=== PATIENT | female | born 1985 | race Caucasian/White ===

== ENCOUNTER 2018-12-23 12:03 | Outpatient (REF) | payer SELFPAY ==
[2018-12-23 22:23] LABS: Abs Immature Grans 0.01 k/cumm (0.0-0.09); Absolute Basophil Count 0.03 k/cumm (0.0-0.2); Absolute Eosinophil Count 0.11 k/cumm (0.0-0.7); Absolute Lymphocyte Count 1.81 k/cumm (1.2-3.4); Absolute Monocyte Count 0.32 k/cumm (0.11-0.7); Absolute Neutrophil Count 5.06 k/cumm (1.2-6.7); Basophils % 0.4; Eosinophils % 1.5; HCT 42.2 % (36.0-46.0); HGB 14.3 g/dL (12.0-15.5); Immature Grans % 0.1; Lymphocytes % 24.7; Mean Corp. HGB Concentration 33.9 g/dL (32.0-36.0); Mean Corpuscular Hemoglobin 31.9 pg (27.0-33.0); Mean Corpuscular Volume 94.2 fL (80-95); Mean Platelet Volume 10.2 fL (8.0-11.0); Monocytes % 4.4; Neutrophils % 68.9; Platelet Count 314 x1000/uL (130-400); RBC 4.48 m/cumm (4.00-5.20); RBC Distribution Width 12.2 % (11.7-14.6); White Blood Cell Count 7.34 k/cumm (4.4-10.8)
[2018-12-23 22:40] LABS: ALT 31 U/L (12-78); AST 20 U/L (15-37); Albumin 4.2 g/dL (3.4-5.0); Alkaline Phosphatase 86 U/L (46-116); Anion Gap 11.8 mmol/L (3-11); BUN 11 mg/dL (7-18); Bilirubin, Total 0.5 mg/dL (0.2-1.0); CO2 25.2 mmol/L (21.0-32.0); CREATININE 0.76 mg/dL (0.55-1.02); Calcium 8.8 mg/dL (8.5-10.1); Chloride 106 mmol/L (98-107); Glucose 87 mg/dL (70-100); Potassium 4.2 mmol/L (3.5-5.1); Sodium 143 mmol/L (136-145); TSH (W/Ref FT4) 0.81 uIU/mL (0.358-3.74); Total Protein 7.7 g/dL (6.4-8.2)
[2018-12-23 23:19] LABS: ESR 15 MM/HR (0-20)
== END 2018-12-23 12:23 ==
LOC: NCHCN 12:03
PROVIDERS: PCP Nurse Practitioner Family; Visit Provider Family Medicine
DX: G35 Multiple sclerosis (principal); F41.8 Other specified anxiety disorders; Z65.9 Problem related to unspecified psychosocial circumstances; R53.83 Other fatigue
CPT/HCPCS: 80053; 85652; 84443; 85025; 86140

== ENCOUNTER 2019-12-19 13:50 | Outpatient (REF) | payer MEDICAID, SELFPAY ==
[2019-12-20 18:29] LABS: COVID-19 RT-PCR UVMMC Result Negative (Negative)
== END 2019-12-19 14:10 ==
LOC: NCHCN 13:50
PROVIDERS: PCP Nurse Practitioner Family; Visit Provider Physician Assistant
DX: J06.9 Acute upper respiratory infection, unspecified (principal)
CPT/HCPCS: U0003

== ENCOUNTER 2020-07-08 19:36 | Outpatient (REF) | payer MEDICAID, SELFPAY ==
[2020-07-08 20:44] LABS: HCT 43.5 % (36.0-46.0); HGB 14.2 g/dL (11.2-15.7); MCH 30.8 pg (27.0-33.0); MCHC 32.6 % (32.0-36.0); MCV 94.4 fL (80-95); MPV 9.3 fL (8.0-11.0); Platelet Count 355 10^3/uL (130-400); RBC 4.61 10^6/uL (3.93-5.22); RDW 12.6 % (11.7-14.6); WBC 7.74 10^3/uL (4.4-10.8)
[2020-07-08 21:12] LABS: ALT 59 U/L (14-59); AST 23 U/L (15-37); Alkaline Phosphatase 93 U/L (46-116); BUN 12 mg/dL (7-18); Bilirubin, Total 0.4 mg/dL (0.2-1.0); CREATININE 0.88 mg/dL (0.55-1.02); Chloride 102 mmol/L (98-107); Glucose 86 mg/dL (74-106); Potassium 4.1 mmol/L (3.5-5.1); Sodium 140 mmol/L (136-145); Total Protein 7.6 g/dL (6.4-8.2)
== END 2020-07-08 19:56 ==
LOC: NCHCN 19:36
PROVIDERS: PCP Nurse Practitioner Family; Visit Provider Nurse Practitioner Family
DX: K92.1 Melena (principal)
CPT/HCPCS: 80053; 85027

== ENCOUNTER 2020-07-27 03:15 | Outpatient (CLI) | payer MEDICAID, SELFPAY ==
[2020-07-27 21:37] LABS: COVID-19 RT-PCR UVMMC Result Negative (Negative)
== END 2020-07-27 03:35 ==
PROVIDERS: PCP Nurse Practitioner Family; Visit Provider Surgery
DX: Z11.52 Encounter for screening for COVID-19 (principal); Z01.818 Encounter for other preprocedural examination
CPT/HCPCS: U0003

== ENCOUNTER 2020-10-25 03:43 | Outpatient (CLI) | payer MEDICAID, SELFPAY ==
[2020-10-25 09:56] LABS: Source Nasal/Nares
[2020-10-25 16:10] LABS: COVID-19 PCR Negative (Negative)
== END 2020-10-25 03:44 | disposition home or self-care (01) ==
LOC: LBO 03:44
PROVIDERS: PCP Nurse Practitioner Family; Visit Provider Surgery
DX: Z20.822 Contact with and (suspected) exposure to COVID-19 (principal); Z01.818 Encounter for other preprocedural examination
CPT/HCPCS: 87635

== ENCOUNTER 2020-10-26 10:34 | Day surgery (SDC) | payer MEDICAID, SELFPAY ==
--- NOTE | 2020-10-26 11:17 | W.ANESPRE ---
General Info Date of Service Date Performed: 10/26/20 Height: 5 ft 6 in Weight: 91.399 kg Body Mass Index (BMI): 32.5 Surgical Procedure: Operation Date: 10/26/20 11:35 Proposed Procedures Side Surgeon lyn Akhtar, DO Meds Allergies and Home Medications Allergies Allergy/AdvReac Type Severity Reaction Status Date / Time dyclonine Allergy Intermediate Itching Unverified 10/26/20 11:17 amoxicillin Allergy Mild noted in Verified 10/26/20 11:16 referral, no reaction given, unknown doxycycline Allergy Mild noted on Verified 10/26/20 11:16 referral no reaction given, unknown erythromycin base Allergy Mild Noted on Verified 10/26/20 11:16 referral, no reaction given, unknown Penicillins AdvReac Intermediate Nausea Unverified 10/26/20 11:16 Home Medication Medication Instructions Recorded levonorgestrel [Mirena] 1 ea INTRAUTERINE DAILY 10/14/12 cholecalciferol (vitamin D3) 125 125 mcg PO DAILY 07/14/20 mcg (5,000 unit) capsule fluticasone 100 mcg-salmeterol 50 1 inh INHALATION BID 07/14/20 mcg/dose blistr powdr for inhalation fluticasone propionate 50 1 spray INTRANASAL BID 07/14/20 mcg/actuation nasal spray,suspension loratadine 10 mg tablet 10 mg PO DAILY 07/14/20 magnesium 250 mg tablet 250 mg PO DAILY 07/14/20 bisacodyl 5 mg tablet,delayed 5 mg PO ONCE #4 tab 07/15/20 release polyethylene glycol 3350 17 238 g PO ONCE #238 g 07/15/20 gram/dose oral powder glatiramer 40 mg/mL subcutaneous 40 mg SUBCUT ONCE 10/14/20 syringe caffeine 200 mg PO BID PRN 10/26/20 Current Visit Medications: Current Medications Generic Name Dose Route Start Last Admin Trade Name Freq PRN Reason Stop Dose Admin Ringer's Solution 1,000 mls @ 80 mls/hr 10/26/20 06:00 IV 11/24/20 23:59 [facility] IV Miscellaneous Supplies 1 each 10/26/20 06:00 Iv Access IV 11/24/20 23:59 DIRECTED NISH Sodium Chloride 0 ml 10/26/20 06:00 Normal Saline Flush 10 Ml Syr IV 11/24/20 23:59 PRN PRN Sodium Chloride 0 ml 10/26/20 06:00 Normal Saline 10 Ml Vial IJ 11/24/20 23:59 DIRECTED PRN Sterile Water 0 ml 10/26/20 06:00 Water,Injection,Sterile 10 Ml Vial IJ 11/24/20 23:59 DIRECTED PRN Vital Signs and Lab Results Point of Care Results Nursing Point of Care Results: No Data to Display Lab Results Blood Type / Crossmatch: No Data to Display Complete Blood Count: White Blood Count 7.74 10^3/uL (4.4-10.8) 07/08/20 16:00 07/08/20 Red Blood Count 4.61 10^6/uL (3.93-5.22) 07/08/20 16:00 07/08/20 Hemoglobin 14.2 g/dL (11.2-15.7) 07/08/20 16:00 07/08/20 Hematocrit 43.5 % (36.0-46.0) 07/08/20 16:00 07/08/20 Platelet Count 355 10^3/uL (130-400) 07/08/20 16:00 07/08/20 Complete Metabolic Panel: Sodium Level 140 mmol/L (136-145) 07/08/20 16:00 07/08/20 Potassium Level 4.1 mmol/L (3.5-5.1) 07/08/20 16:00 07/08/20 Chloride Level 102 mmol/L (98-107) 07/08/20 16:00 07/08/20 Carbon Dioxide Level 30.0 mmol/L (21.0-32.0) 07/08/20 16:00 07/08/20 Blood Urea Nitrogen 12 mg/dL (7-18) 07/08/20 16:00 07/08/20 Creatinine 0.88 mg/dL (0.55-1.02) 07/08/20 16:00 07/08/20 Calcium Level 9.0 mg/dL (8.5-10.1) 07/08/20 16:00 07/08/20 Albumin 4.0 g/dL (3.4-5.0) 07/08/20 16:00 07/08/20 Glucose Level 86 mg/dL (74-106) 07/08/20 16:00 07/08/20 C-Reactive Protein 0.20 mg/dL (0.0-0.3) 12/23/18 10:40 12/23/18 Liver Function Panel: Alanine Aminotransferase (ALT/SGPT) 59 U/L (14-59) 07/08/20 16:00 07/08/20 Aspartate Amino Transf (AST/SGOT) 23 U/L (15-37) 07/08/20 16:00 07/08/20 Coagulation Panel: No Data to Display Cardiac Panel: No Data to Display Arterial Blood Gas: No Data to Display Venous Blood Gas: No Data to Display Pancreas Panel: No Data to Display Thyroid Panel: Thyroid Stimulating Hormone (TSH) 0.81 uIU/mL (0.358-3.74) 12/23/18 10:40 12/23/18 Infectious Disease: Coronavirus (COVID-19)(PCR) Negative (Negative) 10/25/20 08:34 10/25/20 Coronavirus 2019 Source Nasal/nares 10/25/20 08:34 10/25/20 Neisseria gonorrhoeae DNA Probe See comments (()) 09/22/13 17:10 09/22/13 Blood Cultures: No Data to Display Toxicology Panel: No Data to Display Panel: No Data to Display PFSH Active Problems Active Problems: Problem Status Onset Code Depression F32.9 Hemorrhoids K64.9 Blood in stool K92.1 Medical History (Updated 10/26/20 @ 11:28 by Britney Phelps) History of use of contraceptive intrauterine device (IUD) mirena in place IBS (irritable bowel syndrome) Multiple sclerosis Surgical History (Updated 10/26/20 @ 11:34 by Britney Phelps) Hx of appendectomy Hx of wisdom tooth extraction Social History Smoking/Tobacco Use Status: Never Smoking risk assessment performed?: Yes Alcohol Intake: current Alcohol Intake frequency: holidays/special occasions only Drug use: Occasionally Substance use type: marijuana Do you feel safe at home: Yes Do you feel safe in your relationship?: Yes Anesthesia Assessment and Plan Anesthesia History Personal History: No History of Anesthesia Complications Family History: No Family History of Anesthesia Complications Exercise Tolerance Exercise Tolerance: Metabolic Equivalents>4 Pertinent Negatives Pertinent Negatives: No Symptoms of GERD, No Major Cardiovascular Symptoms or Complaints, No Major Pulmonary Symptoms or Complaints and No History of CVA/TIA Cardiac & Pulmonary Exam Cardiac Exam: Normal S1/S2 Heart Sounds Pulmonary Exam: Clear Bilateral Breath Sounds Airway Exam Known Difficult Airway: No Mallampati Class: 2 Mouth Opening: Normal (> 3cm) Thyromental Distance: Greater than 3 cm Neck Range of Motion: Full ROM Neck Circumference: Normal Teeth Condition: Normal Dentition ASA Classification ASA Score: ASA 2 ASA Emergency: No NPO Status NPO Status: NPO Clears >2 hours, Solids >8 hours Status Status: Negative HCG Anesthesia Plan Anesthesia Technique: General Anesthesia Airway Planned: Natural Airway Pain Management: Surgeon and patient request nerve block Monitors Used: Standard Monitors Preoperative Comments:: Patient's ride status is uncertain. Has assured us ex-boyfriend will come pick her up. She agrees and assures will not drive today.
[2020-10-26] MEDS: Lactated Ringers 1,000 ML 80 ML IV (11:20)
[2020-10-26 11:34] VITALS: BMI 32.5
--- NOTE | 2020-10-26 12:34 | BOWEL_PTH ---
PATIENT: Hayley Bernard LOC: [facility] U#:[id number] AGE/SX: 34/F ROOM: RE10/26/[address]: Meenu Akhtar : 1985 BED: DIS: 10/26/2020 SPEC #: [id number] RECD: 10/26/20 17:03 STATUS: [facility] #: [id number] MARIANGEL: 10/26/20 12:[address]: Meenu Akhtar DEPT: Surgical Specimen RECD BY: Kendra Champion ENTERED: 10/26/20 17:04 SP TYPE: Bowel OTHR DR: Janice Calzada Tissues: 1 - BIOPSY BOWEL 2 - BIOPSY BOWEL 3 - BIOPSY BOWEL 4 - BIOPSY BOWEL 5 - BIOPSY BOWEL Procedures: GROSS AND MICRO LEVEL 4 Comments: [id number]
[2020-10-26 13:03] VITALS: BP 127/68; PULSE 68; RESP 18; TEMPC 36.5; O2SAT 38
--- NOTE | 2020-10-26 13:03 | W.ANESPOSTOP ---
Postoperative Evaluation Date, Time and Location Date Performed: 10/26/20 Time Performed: 13:03 Patient Location: Day Surgery Unit Vital Signs Most Recent Manually Entered Vital Signs: Adult Blood Pressure: 127/68 Heart Rate: 68 Respirations: 18 Oxygen Saturation (%): 38 Temperature (C): 36.5 C Pain Score (0-10 Scale): 0 Assessment Mental Status: Awake (Alert & Oriented to Patient Baseline) Airway and Respiratory Function: Patent airway with normal (patient baseline) respiratory exam Cardiovascular Function: Hemodynamically Stable Hydration Status: Adequately Hydrated Nausea & Vomiting: No Nausea or Vomiting Pain: Pt. Denies Any Pain Peripheral Nerve Block: Patient did not receive a nerve block
[2020-10-26 13:17] VITALS: BP 137/79; PULSE 72; RESP 18; TEMP 36.7; O2SAT 99
--- NOTE | 2020-10-26 13:30 | W.PM.DSUDISC ---
Discharge Plan Disposition Patient Disposition: HOME Condition: Good Discharge Details Reason For Visit: colon scope Attending Provider: Meenu Akhtar Primary Care Provider: Janice Calzada Home Meds and New Rx's Prescriptions: New dicyclomine 10 mg capsule 10 mg PO QID Qty: 30 RF: 12 Continued glatiramer [Copaxone] 40 mg/mL syringe 40 mg subcut ONCE RF: 0 magnesium 250 mg tablet 250 mg PO DAILY RF: 0 fluticasone propionate [Flonase Allergy Relief] 50 mcg/actuation spray,suspension 1 spray intranasal BID RF: 0 loratadine [Claritin] 10 mg tablet 10 mg PO DAILY RF: 0 fluticasone propion-salmeterol [Advair Diskus] 100-50 mcg/dose blister with device 1 inh inhalation BID RF: 0 cholecalciferol (vitamin D3) 125 mcg (5,000 unit) capsule 125 mcg PO DAILY RF: 0 Mirena 1 EACH intrauterine device 1 ea Intrauterine DAILY RF: 0 caffeine 200 mg Tablet 200 mg PO BID PRNRF: 0 Discontinued polyethylene glycol 3350 17 gram/dose powder 238 g PO ONCE Qty: 238 RF: 0 bisacodyl [Dulcolax (bisacodyl)] 5 mg tablet,delayed release (DR/EC) 5 mg PO ONCE Qty: 4 RF: 0 Discharge Instructions Additional Instructions: Findings:normal colonoscopy today Follow up:11/11 @ 1pm w/ Dr. Akhtar Rx placed for bentyl for bowel spasms/cramping Keep a food diary to see if you can pinpoint any foods as triggers Consider starting the FODMAP diet to eliminate gas causing foods. Please call if you develop: fevers >101.5 Nausea or Vomiting Abdominal pain that is not transient DAY SURGERY UNIT POST COLONOSCOPY INSTRUCTIONS 1. Because there will be medication in your system for the next 24 hours, you may feel a little sleepy. Your coordination will be affected. Therefore: a. Do not drive or operate dangerous equipment for 24 hours. b. Do not drink alcohol beverages for 24 hours (not even beer). c. Plan to go home and rest for the day. 2. Generally there are no restrictions on your activity after a day or so has gone by, but you may feel a bit fatigued for a few days. 3 After you arrive home you may have a light meal and return to a normal diet as you can tolerate it without feeling sick to your stomach. 4. After surgery, you may feel pain or discomfort. This should be only transient, but if it persists please contact your doctor. 5. If there are any questions regarding the findings of your procedure, please feel free to contact your doctor. 6. If you are unable to contact your doctor with a problem, contact the hospital at [phone]. 7. Continue all your regular medications unless directed otherwise. I understand the above instructions and have no questions. Signature of Patient or Responsible Adult Escort Date/Time Name of Responsible Adult Escort Signature of Nurse Date/Time Stand Alone Forms: Anesthesia Discharge Inst., Roberto Hutchinson (DSU) Activity:: no lifting over 20#'s or strenuous activity x 24 hrs Diet:: small light meals x 24 hrs Discharge Orders Discharge Orders: Discharge Order (Routine); Ordered 10/26/20 Ordered By: Meenu Akhtar
--- NOTE | 2020-10-26 13:55 | W.COLOREPORT ---
Date of service: 10/26/20 Time of Service: 13:55 Colonoscopy Report Date of procedure: 10/26/20 Pre-op diagnosis general: diarrhea and rectal bleeding Post-op diagnosis procedure note: same Procedure: biopsy Surgeon: Meenu Akhtar Anesthesia Type: General:No Airway Pathology: other Complications: None Disposition: same day Procedure Description: After informed consent was obtained the patient was taken to the procedure room and placed in a left decubitous position. Monitors were applied and a time out was done. The patients name, date of , procedure, allergies to medications and metal in their body was reviewed. The patient was then sedated. Once sedated and comfortable a rectal exam was done. Internal exam revealed a normal sphincter tone and no palpable masses. Pt does have x2 small external hemorrhoids. The scope was then introduced and retrofelexed. No internal hemorrhoids were identified. The scope was then advanced to the cecum w/ out difficulty. The TI and appendiceal orifice were identified. The prep was good. The scope was then slowly retracted over 10 minutes back into the rectum. There are no polyps/VM's/diverticula. Bx are taken of cecum/70cm/50cm/30cm/rectum w/ a cold Bx forcept all specimen's are treived and no bleeding is noted. The scope was removed and the patient was woken up and taken back to Same day surgery in stable condition. The patient tolerated the procedure well and there were no immediate complications. Follow up: The patient should have a repeat colonoscopy at age 44 years unless they develop changes in bowel habits or other new gastrointestinal complaints. She will follow-up in the office in 2-3
== END 2020-10-26 14:13 | disposition home or self-care (01) ==
PROVIDERS: PCP Nurse Practitioner Family; Visit Provider Surgery
PROC: 0DJD8ZZ Inspection of Lower Intestinal Tract, Via Natural or Artificial Opening Endoscopic (ICD-10-PCS; CPT 45378; principal; 2020-10-26 11:30)
DX: R19.5 Other fecal abnormalities (principal); R19.7 Diarrhea, unspecified
CPT/HCPCS: 45380; 81025; 88305; J2001

== ENCOUNTER 2021-03-21 16:20 | Outpatient (REF) | payer MEDICAID, SELFPAY ==
[2021-03-21 21:24] LABS: Vitamin D 25 Total 66.8 ng/mL (30-100)
== END 2021-03-21 16:21 | disposition home or self-care (01) ==
LOC: NCHCN 16:20
PROVIDERS: PCP Nurse Practitioner Family; Visit Provider Nurse Practitioner Family
DX: E55.9 Vitamin D deficiency, unspecified (principal)
CPT/HCPCS: 82306

== ENCOUNTER 2021-03-30 10:38 | Outpatient (REF) | payer MEDICAID, SELFPAY ==
[2021-03-30 14:17] LABS: Abs Immature Grans 0.02 10^3/uL (0.0-0.06); Absolute Basophil Count 0.04 10^3/uL (0.0-0.2); Absolute Eosinophil Count 0.13 10^3/uL (0.0-0.7); Absolute Lymphocyte Count 1.77 10^3/uL (1.2-3.4); Absolute Monocyte Count 0.32 10^3/uL (0.1-0.8); Absolute Neutrophil Count 4.52 10^3/uL (1.2-6.7); Basophils % 0.6; Eosinophils % 1.9; HCT 42.7 % (36.0-46.0); HGB 14.2 g/dL (11.2-15.7); Immature Grans % 0.3; MCH 31.1 pg (27.0-33.0); MCHC 33.3 % (32.0-36.0); MCV 93.4 fL (80-95); MPV 9.9 fL (8.0-11.0); Monocytes % 4.7; Neutrophils % 66.5; Nucleated RBC 0 %; Platelet Count 332 10^3/uL (130-400); RBC 4.57 10^6/uL (3.93-5.22); RDW 12.1 % (11.7-14.6)
[2021-03-30 14:51] LABS: ALT 32 U/L (14-59); AST 22 U/L (15-37); Albumin 3.9 g/dL (3.4-5.0); Alkaline Phosphatase 77 U/L (46-116); Anion Gap 8.3 mmol/L (3-11); BUN 11 mg/dL (7-18); Bilirubin, Total 0.3 mg/dL (0.2-1.0); CO2 29.7 mmol/L (21.0-32.0); CREATININE 0.9 mg/dL (0.55-1.02); Chloride 105 mmol/L (98-107); Glucose 98 mg/dL (74-106); Potassium 4.5 mmol/L (3.5-5.1); Sodium 143 mmol/L (136-145); Total Protein 7.6 g/dL (6.4-8.2)
== END 2021-03-30 10:39 | disposition home or self-care (01) ==
LOC: LBN 10:38
PROVIDERS: PCP Nurse Practitioner Family; Visit Provider Psychiatry & Neurology Neurology
DX: G35 Multiple sclerosis (principal)
CPT/HCPCS: 80053; 85025

== ENCOUNTER 2022-03-21 16:47 | Outpatient (REF) | payer MEDICAID, SELFPAY ==
--- NOTE | 2022-03-21 14:40 | PAPFT_PTH ---
PATIENT: Hayley Bernard [facility] U[id number] AGE/SX: 36/F ROOM: RE03/21/[address]: Janice Calzada : 1985 BED: DIS: 03/21/2022 SPEC #: [id number] RECD: 03/22/22 13:19 STATUS: [facility] #: [id number] MARIANGEL: 03/21/22 14:[address]: Janice Calzada DEPT: [facility] Cytology RECD BY: Kendra Champoin Tissues: 1 - CX/ENDOCX FOR PAP SMEARS Procedures: PAP THIN PREP/UVM Screening HPV DNA PROBE Comments: [id number] (CHLAMYDIA/GC)
[2022-03-21 20:41] LABS: Abs Immature Grans 0.01 10^3/uL (0.0-0.06); Absolute Basophil Count 0.06 10^3/uL (0.0-0.2); Absolute Monocyte Count 0.38 10^3/uL (0.1-0.8); Absolute Neutrophil Count 4.22 10^3/uL (1.2-6.7); Basophils % 0.9; Eosinophils % 1.5; HCT 39.9 % (36.0-46.0); HGB 13.2 g/dL (11.2-15.7); Immature Grans % 0.2; Lymphocytes % 26.3; MCH 31.1 pg (27.0-33.0); MCHC 33.1 % (32.0-36.0); MCV 94 fL (80-95); MPV 9.2 fL (8.0-11.0); Monocytes % 5.9; Neutrophils % 65.2; Platelet Count 337 10^3/uL (130-400); RBC 4.25 10^6/uL (3.93-5.22); RDW 12.6 % (11.7-14.6); RDW-SD 43.6 fL; WBC 6.47 10^3/uL (4.4-10.8)
[2022-03-21 21:21] LABS: ALT 24 U/L (14-59); AST 20 U/L (15-37); Albumin 3.7 g/dL (3.4-5.0); Alkaline Phosphatase 78 U/L (46-116); Anion Gap 7.3 mmol/L (3-11); BUN 11 mg/dL (7-18); Bilirubin, Total 0.2 mg/dL (0.2-1.0); CO2 30.7 mmol/L (21.0-32.0); CREATININE 0.9 mg/dL (0.55-1.02); Calcium 8.9 mg/dL (8.5-10.1); Chloride 102 mmol/L (98-107); Estimated GFR 84.44 (mL/min/1.73m2); Glucose 67 mg/dL (74-106); Potassium 3.3 mmol/L (3.5-5.1); Sodium 140 mmol/L (136-145); Total Protein 8.3 g/dL (6.4-8.2)
[2022-03-23 05:45] LABS: Vitamin D 25 Total 71.8 ng/mL (30-100)
[2022-03-23 10:00] LABS: HIV-1/2 Ag & Ab Screen Negative (Negative); IgA 484 mg/dL (85-499); IgG 1624 mg/dL (610-1,616); IgM 174 mg/dL (35-242)
[2022-03-23 10:01] LABS: HBs Antibody, Quant 43.2 mIU/mL (See Note); Hep B Core Antibody Negative (Negative); Hepatitis B Surface Ab Positive (See Note); Hepatitis C Ab w Rflx HCV PCR Negative (Negative)
[2022-03-23 10:05] LABS: Hepatitis B Surface Ag Negative (Negative)
[2022-03-23 14:41] LABS: GC Result Negative (Negative)
[2022-03-23 14:51] LABS: Chlamydia Result Positive (Negative)
== END 2022-03-21 16:48 | disposition home or self-care (01) ==
LOC: NCHCN 16:47
PROVIDERS: PCP Nurse Practitioner Family; Visit Provider Nurse Practitioner Family
DX: Z12.4 Encounter for screening for malignant neoplasm of cervix (principal); Z11.3 Encounter for screening for infections with a predominantly sexual mode of transmission; E55.9 Vitamin D deficiency, unspecified; G35 Multiple sclerosis; A74.89 Other chlamydial diseases; R87.610 Atypical squamous cells of undetermined significance on cytologic smear of cervix (ASC-US); Z11.51 Encounter for screening for human papillomavirus (HPV)
CPT/HCPCS: 80053; 82306; 82784; 86704; 86706; 86803; 87340; 87389; 87491; 87591; 88142; 85025; 87624

== ENCOUNTER 2022-07-04 16:39 | Outpatient (REF) | payer MEDICAID, SELFPAY ==
[2022-07-04 16:38] LABS: Abs Immature Grans 0.02 10^3/uL (0.0-0.06); Absolute Basophil Count 0.05 10^3/uL (0.0-0.2); Absolute Eosinophil Count 0.14 10^3/uL (0.0-0.7); Absolute Lymphocyte Count 1.73 10^3/uL (1.2-3.4); Absolute Monocyte Count 0.42 10^3/uL (0.1-0.8); Absolute Neutrophil Count 5.15 10^3/uL (1.2-6.7); Basophils % 0.7; Eosinophils % 1.9; HCT 41.6 % (36.0-46.0); Immature Grans % 0.3; MCH 30.9 pg (27.0-33.0); MCHC 33.7 % (32.0-36.0); MCV 92 fL (80-95); MPV 9.6 fL (8.0-11.0); Monocytes % 5.6; Neutrophils % 68.5; Platelet Count 372 10^3/uL (130-400); RBC 4.53 10^6/uL (3.93-5.22); RDW 12.2 % (11.7-14.6); RDW-SD 41.2 fL; WBC 7.51 10^3/uL (4.4-10.8)
[2022-07-04 17:02] LABS: TSH 1.18 uIU/mL (0.36-3.74)
[2022-07-04 18:06] LABS: Hemoglobin A1C 5.1 % (<5.7)
== END 2022-07-04 16:40 | disposition home or self-care (01) ==
LOC: NCHCN 16:39
PROVIDERS: PCP Nurse Practitioner Family; Visit Provider Nurse Practitioner Family
DX: N94.89 Other specified conditions associated with female genital organs and menstrual cycle (principal); Z13.1 Encounter for screening for diabetes mellitus; G35 Multiple sclerosis; F41.8 Other specified anxiety disorders
CPT/HCPCS: 83036; 84443; 85025

== ENCOUNTER 2023-02-23 10:37 | Outpatient (REF) | payer MEDICAID, SELFPAY ==
[2023-02-23 16:41] LABS: Bilirubin Negative (Negative); Blood Negative (Negative); Clarity Sl Cloudy (Clear); Glucose Negative (Negative); Ketones Negative (Negative); Leukocyte Esterase Small (Negative); Nitrite Negative (Negative); Specific Gravity >= 1.030 (1.005-1.025); Urobilinogen 0.2 mg/dL (Up to 0.2)
[2023-02-23 17:04] LABS: Bacteria Moderate HPF (Negative); C & S Indicated? Yes; Casts Negative LPF (Negative); Crystals Negative HPF (Negative); Epithelial Cells Few HPF (Negative); Mucus Negative (Negative); RBC 0-2 HPF (0-2); WBC 20-50 HPF (0-5)
== END 2023-02-23 10:38 | disposition home or self-care (01) ==
LOC: NCHCN 10:37
PROVIDERS: PCP Nurse Practitioner Family; Visit Provider Family Medicine
DX: R30.0 Dysuria (principal); R82.79 Other abnormal findings on microbiological examination of urine
CPT/HCPCS: 87077; 81003; 81015; 87086; 87186

== ENCOUNTER 2025-02-12 21:35 | Outpatient (REF) | payer MEDICARE, SELFPAY ==
[2025-02-12 20:38] LABS: Hemoglobin A1C 5.0 % (<5.7)
[2025-02-12 20:52] LABS: ALT 76 U/L (14-59); AST 45 U/L (15-37); Albumin 3.7 g/dL (3.4-5.0); Alkaline Phosphatase 114 U/L (46-116); Anion Gap 8.4 mmol/L (3-11); BUN 17 mg/dL (7-18); Bilirubin, Total 0.3 mg/dL (0.2-1.0); CO2 26.6 mmol/L (21.0-32.0); Calcium 8.9 mg/dL (8.5-10.1); Calculated LDL 100 mg/dL (<100); Chloride 105 mmol/L (98-107); Cholesterol 182 mg/dL (<200); Estimated GFR 112.05 (mL/min/1.73m2); Glucose 87 mg/dL (74-106); HDL Cholesterol 38 mg/dL (>or=50); Potassium 4.1 mmol/L (3.5-5.1); Sodium 140 mmol/L (136-145); Total Protein 7.7 g/dL (6.4-8.2); Triglyceride 223 mg/dL (<150)
== END 2025-02-12 21:36 | disposition home or self-care (01) ==
LOC: NCHCN 21:35
PROVIDERS: PCP Nurse Practitioner Family; Visit Provider Family Medicine
DX: Z13.1 Encounter for screening for diabetes mellitus (principal); I10 Essential (primary) hypertension; Z13.220 Encounter for screening for lipoid disorders
CPT/HCPCS: 80053; 80061; 83036